=== PATIENT | female | born 1985 | race Caucasian/White ===

== ENCOUNTER 2017-02-23 19:38 | Emergency (ER) | payer OTHER ==
[~2017-02-23] VITALS: Ht 165.1 cm; Wt 77.3 kg
[~2017-02-23 19:38] MED LIST: CITA20TA; PEP20; PREN1TAB47; phenergan
[2017-02-23 19:58] VITALS: BP 130/84; PULSE 78; RESP 18; O2SAT 100
--- NOTE | 2017-02-23 20:48 | DRSVH ---
PROCEDURE: X-RAY RIGHT ANKLE, MINIMUM THREE VIEWS ([id number]) INDICATIONS: Twist/Fall TECHNIQUE: 3 views of the ankle were acquired. COMPARISON: None. FINDINGS: Bones: No fractures or dislocations. Ankle mortise is normally aligned. No suspicious bony lesions . Soft tissues: No tibiotalar joint effusion. Achilles tendon appears normal. IMPRESSION: No acute bony abnormality is seen. Bilateral lateral greater than medial soft tissue swel ling is thought to be present about the ankle. Dictated by: Ravindra Feliz M.D. on 02/23/2017 at 20:45 Approved by: Ravindra Feliz M.D. on 02/23/2017 at 20:46
--- NOTE | 2017-02-23 20:48 | ED.REPORT ---
HPI-Extremity Problem Lower Date of Service Feb 23, 2017 ED Provider: Jasmyn Pt is a 31 year old female with a history of scoliosis and arthritis who presents to the ED complaining of right ankle pain onset 2 days ago. She c/o associated swelling. She denies any other injury or symptoms. Per pt, she is unable to bear weight and she had difficult getting up at onset of her injury. Pt reports that she was running in [place] while camping and twisted right ankle. Nursing Notes Stated Complaint: RIGHT ANKLE INJURY Chief Complaint: Extremity Trauma Nursing Notes Reviewed: Yes Allergies: Coded Allergies: No Known Allergies (Verified , 02/23/17) Miscellaneous Medications Citalopram-Expunged Drug, Do Not Renew! (Citalopram-Expunged Drug, Do Not Renew! ) 20 Mg Tablet Famotidine-Expunged Drug, Do Not Renew! (Famotidine-Expunged Drug, Do Not Renew! ) 20 Mg Tablet Vit/Fe Fumarate/Fa-Expunged Drug, Do (-Expunged Drug, Do Not Renew!) 1 Tab Tablet General Time Seen by MD: 20:48 Chief Complaint Ankle injury right Hx Obtained From: Patient Arrived By: Walk-in Onset Occurred: 2 days ago Symptom Duration: Since onset Location: : Ankle right Quality: Painful Severity: Current: Moderate Severity: Maximum: Moderate Recent Healthcare: No recent doctor visit, No recent hospitalization Similar Sx Previous: No Past Medical History Past Medical History Depression Scoliosis Arthirtis Past Surgical History Denies Smoking History Unknown if Ever Smoker Social History Other Social History: Good social support, Lives with children Ambulatory Status Independent Review of Systems Constitutional: Denies: Fatigue Musculoskeletal: Reports: Joint pain (ankle), Joint swelling (ankle), Denies: Extremity pain Complete sys rev & neg: except as marked. Respiratory: Denies: Non-productive cough Physical Exam Initial Vital Signs Vital Signs (First) Date Time Temp Pulse Resp B/P Pulse Ox O2 Delivery O2 Flow Rate FiO2 02/23/17 19:58 36.8 78 18 130/84 100 Room Air Initial VS: Reviewed Head / Eyes: Atraumatic, Normocephalic Neck: Supple, Full range of motion Respiratory: Breath sounds normal, Clear to auscultation, No respiratory distress Cardiovascular: Regular rate & rhythm, Heart sounds normal, Intact distal pulses Abdomen / GI: Soft, Non-tender Upper Extremities: Vascular intact, Neuro intact Skin: Warm, Dry, No cyanosis Neurologic: Alert, Oriented, Nonfocal Psychiatric: Mood/affect normal, Behavior normal Lower Extremity / Pelvis / MS: Atraumatic, Full range of motion Ankle / Foot: Neurologic intact, Vascular intact Diffuse right ankle swelling with lateral tenderness General/Constitutional: Awake, Alert Interpretation & Diagnostics X-Ray Interpretation Xray Interpretation: IMPRESSION: No acute bony abnormality is seen. Bilateral lateral greater than medial soft tissue swelling is thought to be present about the ankle. Dictated by: Ravindra Feliz M.D. on 02/23/2017 at 20:45 X-Ray Ordered: Ankle right Interpretation / Wet Read by: Interpret - Radiologist Re-Eval/Medical Decision Med Decision/Clinical Course Right ankle sprain. No evidence of fracture. Difficulty bearing weight. Placed in a walking boot with crutches. Weightbearing as tolerated. Rice. F/u pmd. Source of Hx: Old records Re-Evaluation/Progress : Time of Eval: 20:48 Re-Evaluation/Progress Note: Informed pt of plan for discharge. Pt understands and agrees with plan for discharge. F/U instructions and RTER warnings given. All questions addressed. Counseled Regarding: Diagnosis, Need for follow-up, When/why to return to ED Discharge & Departure Impression: Primary Impression: Right ankle sprain Encounter type: initial encounter Involved ligament of ankle: unspecified ligament Qualified Code: S93.401A - Sprain of unspecified ligament of right ankle, initial encounter Disposition: Home Discharge Condition All VS Reviewed: Yes Condition: Stable Patient Instructions: Ankle Sprain (ED) Additional Instructions: You sprained your ankle. The x-ray shows no fractures. It typically takes around 2 weeks to get better. We recommend icing your ankle 3x daily for 20 minutes. Keep it elevated when you can and try to put weight on your ankle as tolerated. Follow up with your primary care provider on Sunday if your symptoms are not improved. Referrals: Joshua Mccrary MD (PCP) Scribe Attestation Portions of this note were transcribed by Caro Schreiber. I, Dr. Vines personally performed the history, physical exam and medical decision-making; I reviewed and confirmed the accuracy of the information in the transcribed note. Signed by: Jessica Pickett, 02/23/17. copies to: Joshua Mccrary MD, Ben M MD Feb 23, 2017 20:48 Caro Schuster Feb 23, 2017 21:09
[2017-02-23 21:26] VITALS: BP 130/84; PULSE 78; RESP 18; O2SAT 100
== END 2017-02-23 22:09 | disposition home or self-care (01) ==
LOC: SED 19:38
DX: S93.491A Sprain of other ligament of right ankle, initial encounter (principal); X50.0XXA Overexertion from strenuous movement or load, initial encounter; Y93.02 Activity, running; Y99.8 Other external cause status; Y92.828 Other wilderness area as the place of occurrence of the external cause